=== PATIENT | female | born 1960 | race African-American/Black ===

== ENCOUNTER 2020-05-30 13:32 | Inpatient (IN) | payer OTHER ==
[2020-05-30] MEDS ORDERED: ACETAMINOPHEN 1000 MG/100 ML VIAL (NON FORMULARY) IVPB ONE (13:48)
[2020-05-30] MEDS ORDERED: ACETAMINOPHEN INJECTION 100 ML IVPB ONE (15:06)
[2020-05-30 15:33] LABS: BASO % 0.2 % (0-2.0); HEMATOCRIT 42.7 % (32.4-45.2); HEMOGLOBIN 13.9 GM/dL (10.7-15.3); MCH 26.2 pg (25.7-33.7); MCHC 32.5 g/dl (32.0-36.0); MEAN CELL VOLUME 80.7 fl (80-96); MEAN PLT VOLUME 10.4 fl (7.5-11.1); MONO % 6.6 % (3.8-10.2); NEUT % 85.2 % (42.8-82.8); PLATELET COUNT 224 K/MM3 (134-434); RBC 5.29 M/mm3 (3.60-5.2); RDW 14.6 % (11.6-15.6); WHITE BLOOD COUNT 9.4 K/mm3 (4.0-10.0)
[2020-05-30 15:43] LABS: INR 1.04 (0.83-1.09); PROTHROMBIN TIME (PATIENT) 12.8 SEC (9.7-13.0)
[2020-05-30 15:46] LABS: ACTIVATED PTT 28.4 SECONDS (25.2-36.5)
[2020-05-30 15:52] LABS: CHLORIDE 106 mmol/L (98-107); POTASSIUM 5.5 mmol/L (3.5-5.1); SODIUM 139 mmol/L (136-145)
[2020-05-30 15:55] LABS: CALCIUM 8.9 mg/dL (8.5-10.1)
[2020-05-30 15:56] LABS: ALBUMIN 3.1 g/dl (3.4-5.0); ANION GAP 4 MMOL/L (8-16); BLOOD UREA NITROGEN 45.2 mg/dL (7-18); CO2 30 mmol/L (21-32); GLUCOSE,RANDOM 323 mg/dL (74-106)
[2020-05-30 15:59] LABS: CREATININE 1.5 mg/dL (0.55-1.3); SGOT/AST 25 U/L (15-37); SGPT/ALT 57 U/L (13-61)
[2020-05-30 16:00] LABS: BILIRUBIN,DIRECT 0.1 mg/dL (0.0-0.2); BILIRUBIN,TOTAL 0.5 mg/dL (0.2-1)
[2020-05-30 16:01] LABS: TOT PROT 7.1 g/dl (6.4-8.2)
[2020-05-30] MEDS ORDERED: SODIUM CHLORIDE 1,000 ML IV STA (16:01)
[2020-05-30] MEDS ORDERED: CALCIUM GLUCONATE 10% - 1,000 MG/10 ML VIAL IVPUSH ONE (16:01)
[2020-05-30 16:02] LABS: ALK PHOS 95 U/L (45-117)
[2020-05-30] MEDS ORDERED: DEXAMETHASONE SOD PHOSPHATE 4 MG/1 ML VIAL IVPUSH ONE (16:02)
[2020-05-30 16:03] LABS: LDH 510 U/L (84-246)
[2020-05-30 16:26] LABS: ANISOCYTOSIS 1+; MACROCYTOSIS 0; PLATELET ESTIMATE NORMAL
[2020-05-30] MEDS ORDERED: CALCIUM GLUCONATE 10% - 1,000 MG/10 ML VIAL ONE (16:32)
[2020-05-30] MEDS ORDERED: DEXAMETHASONE SOD PHOSPHATE 4 MG/1 ML VIAL ONE (16:32)
[2020-05-30] MEDS ORDERED: ACETAMINOPHEN 325 MG TABLET (FP) PO PRN (17:44)
[2020-05-30] MEDS ORDERED: ALBUTEROL SO4 HFA INHALER IH PRN (17:44)
[2020-05-30] MEDS ORDERED: SODIUM CHLORIDE 1,000 ML IV SCH (17:45)
[2020-05-30] MEDS ORDERED: AZITHROMYCIN 250 MG TABLET PO SCH (18:00)
[2020-05-30] MEDS ORDERED: ENOXAPARIN NA (PORCINE) 40 MG/0.4 ML DISP.SYRIN SQ ONE (18:56)
[2020-05-30] MEDS ORDERED: AZITHROMYCIN 250 MG TABLET ONE (18:56)
[2020-05-30] MEDS ORDERED: CHOLECALCIFEROL (VIT D3) 1,000 UNIT (25 MCG) TABLET ONE (18:56)
[2020-05-30] MEDS: CHOLECALCIFEROL (VIT D3) 1,000 UNIT (25 MCG) TABLET PO SCH (19:16)
[2020-05-30] MEDS: ENOXAPARIN NA (PORCINE) 40 MG/0.4 ML DISP.SYRIN SQ SCH (19:16)
[2020-05-30] MEDS: hydrALAZINE HCL 10 MG TABLET PO SCH (22:52)
[2020-05-30] MEDS: INSULIN SLIDING SCALE (NOVOLOG) 1 VIAL SQ SCH (22:53)
[2020-05-30] MEDS: ASCORBIC ACID 500 MG TABLET (FP) PO SCH (22:53)
[2020-05-30] MEDS: ATORVASTATIN CA 20 MG TABLET (FP) PO SCH (22:53)
[2020-05-30] MEDS: INSULIN (LEVEMIR) 100 UNITS/ML UNITS SQ SCH (22:54)
[2020-05-30 23:40] VITALS: BMI 26.4
[2020-05-31] MEDS: INSULIN SLIDING SCALE (NOVOLOG) 1 VIAL SQ SCH ×4 (06:42→21:07)
[2020-05-31] MEDS ORDERED: INSULIN (NOVOLOG) ASPART 100 UNITS/ML 10ML VIAL ONE (07:07)
[2020-05-31 08:33] LABS: HEMATOCRIT 36.4 % (32.4-45.2); MCH 26.2 pg (25.7-33.7); MEAN CELL VOLUME 79.2 fl (80-96); MEAN PLT VOLUME 10.1 fl (7.5-11.1); PLATELET COUNT 198 K/MM3 (134-434); RDW 14.3 % (11.6-15.6); WHITE BLOOD COUNT 7.9 K/mm3 (4.0-10.0)
[2020-05-31 09:02] LABS: POTASSIUM 5.3 mmol/L (3.5-5.1)
[2020-05-31 09:11] LABS: BLOOD UREA NITROGEN 37.5 mg/dL (7-18); CALCIUM 8.5 mg/dL (8.5-10.1); MAGNESIUM 2.1 mg/dL (1.8-2.4)
[2020-05-31 09:14] LABS: PHOSPHOROUS 3.5 mg/dL (2.5-4.9)
[2020-05-31 09:15] LABS: CREATININE 1.3 mg/dL (0.55-1.3)
[2020-05-31] MEDS ORDERED: ZINC SULFATE 220 MG TABLET PO SCH (10:00)
[2020-05-31] MEDS: hydrALAZINE HCL 10 MG TABLET PO SCH ×2 (12:13→21:06)
[2020-05-31] MEDS: PANTOPRAZOLE 40 MG TABLET PO SCH (12:13)
[2020-05-31] MEDS: ASPIRIN 81 MG CHEWABLE TABLETS PO SCH (12:13)
[2020-05-31] MEDS: ASCORBIC ACID 500 MG TABLET (FP) PO SCH ×2 (12:13→21:06)
[2020-05-31] MEDS: amLODIPine BESYLATE 10 MG TABLET (FP) PO SCH (12:13)
[2020-05-31] MEDS: CHOLECALCIFEROL (VIT D3) 1,000 UNIT (25 MCG) TABLET PO SCH (12:13)
[2020-05-31] MEDS: CLOPIDOGREL BISULFATE 75 MG TABLET (FP) PO SCH (12:14)
[2020-05-31] MEDS: ENOXAPARIN NA (PORCINE) 40 MG/0.4 ML DISP.SYRIN SQ SCH (12:14)
[2020-05-31] MEDS: BUDESONIDE/FORMETEROL FUMARATE 80/4.5 mcg INHALER IH SCH ×3 (12:14→21:10)
[2020-05-31] MEDS: DEXAMETHASONE SOD PHOSPHATE 10 MG/1 ML VIAL IVPUSH SCH (13:18)
[2020-05-31] MEDS ORDERED: REMDESIVIR 200 MG in SODIUM CHLORIDE 210 ML IVPB ONE (17:00)
[2020-05-31] MEDS: INSULIN (LEVEMIR) 100 UNITS/ML UNITS SQ SCH (21:07)
[2020-05-31] MEDS: ATORVASTATIN CA 20 MG TABLET (FP) PO SCH (21:07)
[2020-06-01 02:15] LABS: PH,URINE 5.5 (5.0-8.0); URINE APPEARANCE CLEAR; URINE BILIRUBIN NEGATIVE (NEGATIVE); URINE COLOR YELLOW; URINE GLUCOSE (UA) 3+ (NEGATIVE); URINE KETONE NEGATIVE (NEGATIVE); URINE LEUK ESTERASE NEGATIVE (NEGATIVE); URINE NITRITE NEGATIVE (NEGATIVE); URINE PROTEIN NEGATIVE (NEGATIVE); URINE UROBILINOGEN 0.2 mg/dL (0.2-1.0)
[2020-06-01] MEDS ORDERED: SODIUM CHLORIDE 1,000 ML IV SCH (04:45)
[2020-06-01] MEDS: hydrALAZINE HCL 10 MG TABLET PO SCH ×3 (05:51→22:15)
[2020-06-01] MEDS: INSULIN SLIDING SCALE (NOVOLOG) 1 VIAL SQ SCH ×4 (07:23→22:18)
[2020-06-01 08:43] LABS: BASO % 0.1 % (0-2.0); HEMATOCRIT 34.4 % (32.4-45.2); HEMOGLOBIN 11.2 GM/dL (10.7-15.3); LYMPH % 7.8 % (8-40); MCH 26.2 pg (25.7-33.7); MCHC 32.5 g/dl (32.0-36.0); MEAN CELL VOLUME 80.6 fl (80-96); MEAN PLT VOLUME 10.1 fl (7.5-11.1); MONO % 4.4 % (3.8-10.2); NEUT % 87.7 % (42.8-82.8); PLATELET COUNT 147 K/MM3 (134-434); RBC 4.26 M/mm3 (3.60-5.2); RDW 14.1 % (11.6-15.6); WHITE BLOOD COUNT 7.7 K/mm3 (4.0-10.0)
[2020-06-01 08:56] LABS: CHLORIDE 107 mmol/L (98-107); POTASSIUM 4.7 mmol/L (3.5-5.1); SODIUM 140 mmol/L (136-145)
[2020-06-01 09:01] LABS: CALCIUM 8.4 mg/dL (8.5-10.1)
[2020-06-01 09:02] LABS: ALBUMIN 2.6 g/dl (3.4-5.0); ANION GAP 7 MMOL/L (8-16); BLOOD UREA NITROGEN 28.5 mg/dL (7-18); CO2 26 mmol/L (21-32); GLUCOSE,RANDOM 203 mg/dL (74-106); MAGNESIUM 1.9 mg/dL (1.8-2.4)
[2020-06-01 09:05] LABS: CREATININE 1.1 mg/dL (0.55-1.3); SGOT/AST 14 U/L (15-37); SGPT/ALT 49 U/L (13-61)
[2020-06-01 09:06] LABS: BILIRUBIN,TOTAL 0.6 mg/dL (0.2-1); LDH 313 U/L (84-246); TOT PROT 5.7 g/dl (6.4-8.2)
[2020-06-01 09:08] LABS: ALK PHOS 79 U/L (45-117)
[2020-06-01 10:32] LABS: ANISOCYTOSIS 0; MACROCYTOSIS 0; PLATELET ESTIMATE DECREASED
[2020-06-01] MEDS: DEXAMETHASONE SOD PHOSPHATE 10 MG/1 ML VIAL IVPUSH SCH (10:49)
[2020-06-01] MEDS: ASPIRIN 81 MG CHEWABLE TABLETS PO SCH (10:49)
[2020-06-01] MEDS: CLOPIDOGREL BISULFATE 75 MG TABLET (FP) PO SCH (10:50)
[2020-06-01] MEDS: ZINC SULFATE 220 MG CAPSULE (FP) PO SCH (10:50)
[2020-06-01] MEDS: amLODIPine BESYLATE 10 MG TABLET (FP) PO SCH (10:50)
[2020-06-01] MEDS: ENOXAPARIN NA (PORCINE) 40 MG/0.4 ML DISP.SYRIN SQ SCH (10:50)
[2020-06-01] MEDS: CHOLECALCIFEROL (VIT D3) 1,000 UNIT (25 MCG) TABLET PO SCH (10:50)
[2020-06-01] MEDS: ASCORBIC ACID 500 MG TABLET (FP) PO SCH ×2 (10:50→22:15)
[2020-06-01] MEDS: BUDESONIDE/FORMETEROL FUMARATE 80/4.5 mcg INHALER IH SCH ×2 (10:50→22:19)
[2020-06-01] MEDS: PANTOPRAZOLE 40 MG TABLET PO SCH (10:50)
[2020-06-01] MEDS: INSULIN (LEVEMIR) 100 UNITS/ML UNITS SQ SCH ×2 (11:12→22:15)
[2020-06-01] MEDS ORDERED: REMDESIVIR 100 MG in SODIUM CHLORIDE 230 ML IVPB SCH (17:00)
[2020-06-01] MEDS: ATORVASTATIN CA 20 MG TABLET (FP) PO SCH (22:15)
[2020-06-02] MEDS: hydrALAZINE HCL 10 MG TABLET PO SCH ×3 (06:30→21:28)
[2020-06-02] MEDS: INSULIN SLIDING SCALE (NOVOLOG) 1 VIAL SQ SCH ×4 (06:30→21:29)
[2020-06-02 11:02] LABS: BASO % 0.1 % (0-2.0); HEMATOCRIT 36.3 % (32.4-45.2); HEMOGLOBIN 11.7 GM/dL (10.7-15.3); LYMPH % 5.6 % (8-40); MCH 26.1 pg (25.7-33.7); MCHC 32.3 g/dl (32.0-36.0); MEAN CELL VOLUME 80.7 fl (80-96); MEAN PLT VOLUME 10.8 fl (7.5-11.1); MONO % 4.9 % (3.8-10.2); NEUT % 89.4 % (42.8-82.8); PLATELET COUNT 148 K/MM3 (134-434); RBC 4.49 M/mm3 (3.60-5.2); RDW 13.9 % (11.6-15.6)
[2020-06-02 11:16] LABS: CHLORIDE 107 mmol/L (98-107); POTASSIUM 4.6 mmol/L (3.5-5.1); SODIUM 138 mmol/L (136-145)
[2020-06-02 11:23] LABS: ALBUMIN 2.5 g/dl (3.4-5.0); BILIRUBIN,TOTAL 0.8 mg/dL (0.2-1); BLOOD UREA NITROGEN 35.2 mg/dL (7-18); CALCIUM 8.1 mg/dL (8.5-10.1); SGPT/ALT 67 U/L (13-61)
[2020-06-02 11:25] LABS: ALK PHOS 92 U/L (45-117); ANION GAP 7 MMOL/L (8-16); CO2 24 mmol/L (21-32); GLUCOSE,RANDOM 357 mg/dL (74-106); LDH 314 U/L (84-246); TOT PROT 5.5 g/dl (6.4-8.2)
[2020-06-02] MEDS ORDERED: INSULIN (NOVOLOG) ASPART 100 UNITS/ML 10ML VIAL ONE (11:26)
[2020-06-02 11:27] LABS: CREATININE 1.2 mg/dL (0.55-1.3); PHOSPHOROUS 3.3 mg/dL (2.5-4.9); SGOT/AST 22 U/L (15-37)
[2020-06-02] MEDS: ASPIRIN 81 MG CHEWABLE TABLETS PO SCH (11:30)
[2020-06-02] MEDS: PANTOPRAZOLE 40 MG TABLET PO SCH (11:30)
[2020-06-02] MEDS: ENOXAPARIN NA (PORCINE) 40 MG/0.4 ML DISP.SYRIN SQ SCH (11:30)
[2020-06-02] MEDS: ASCORBIC ACID 500 MG TABLET (FP) PO SCH ×2 (11:31→21:28)
[2020-06-02] MEDS: ZINC SULFATE 220 MG CAPSULE (FP) PO SCH (11:31)
[2020-06-02] MEDS: DEXAMETHASONE SOD PHOSPHATE 10 MG/1 ML VIAL IVPUSH SCH (11:31)
[2020-06-02] MEDS: CHOLECALCIFEROL (VIT D3) 1,000 UNIT (25 MCG) TABLET PO SCH (11:31)
[2020-06-02] MEDS: CLOPIDOGREL BISULFATE 75 MG TABLET (FP) PO SCH (11:31)
[2020-06-02] MEDS: amLODIPine BESYLATE 10 MG TABLET (FP) PO SCH (11:32)
[2020-06-02] MEDS: INSULIN (LEVEMIR) 100 UNITS/ML UNITS SQ SCH ×2 (11:32→21:29)
[2020-06-02] MEDS: BUDESONIDE/FORMETEROL FUMARATE 80/4.5 mcg INHALER IH SCH ×2 (11:40→21:33)
[2020-06-02 12:03] LABS: ANISOCYTOSIS 0; MACROCYTOSIS 0; PLATELET ESTIMATE DECREASED
[2020-06-02] MEDS: ATORVASTATIN CA 20 MG TABLET (FP) PO SCH (21:28)
[2020-06-03] MEDS: INSULIN SLIDING SCALE (NOVOLOG) 1 VIAL SQ SCH ×3 (06:14→17:09)
[2020-06-03] MEDS: hydrALAZINE HCL 10 MG TABLET PO SCH ×2 (06:39→14:18)
[2020-06-03 07:51] LABS: BASO % 0.3 % (0-2.0); HEMATOCRIT 38.3 % (32.4-45.2); HEMOGLOBIN 12.4 GM/dL (10.7-15.3); MCH 26.1 pg (25.7-33.7); MCHC 32.3 g/dl (32.0-36.0); MEAN CELL VOLUME 80.8 fl (80-96); MEAN PLT VOLUME 10.2 fl (7.5-11.1); MONO % 4.5 % (3.8-10.2); NEUT % 90.2 % (42.8-82.8); PLATELET COUNT 119 K/MM3 (134-434); RBC 4.74 M/mm3 (3.60-5.2); RDW 14.4 % (11.6-15.6); WHITE BLOOD COUNT 10.5 K/mm3 (4.0-10.0)
[2020-06-03 08:06] LABS: POTASSIUM 4.7 mmol/L (3.5-5.1)
[2020-06-03 08:10] LABS: ALBUMIN 2.6 g/dl (3.4-5.0); BLOOD UREA NITROGEN 36.8 mg/dL (7-18); CALCIUM 8.2 mg/dL (8.5-10.1); MAGNESIUM 2.2 mg/dL (1.8-2.4)
[2020-06-03 08:12] LABS: CREATININE 1.3 mg/dL (0.55-1.3)
[2020-06-03 08:13] LABS: PHOSPHOROUS 2.9 mg/dL (2.5-4.9)
[2020-06-03 08:14] LABS: BILIRUBIN,TOTAL 0.5 mg/dL (0.2-1); TOT PROT 5.7 g/dl (6.4-8.2)
[2020-06-03] MEDS: ASCORBIC ACID 500 MG TABLET (FP) PO SCH (10:41)
[2020-06-03] MEDS: INSULIN (LEVEMIR) 100 UNITS/ML UNITS SQ SCH (10:41)
[2020-06-03] MEDS: ENOXAPARIN NA (PORCINE) 40 MG/0.4 ML DISP.SYRIN SQ SCH (10:41)
[2020-06-03] MEDS: DEXAMETHASONE SOD PHOSPHATE 10 MG/1 ML VIAL IVPUSH SCH (10:41)
[2020-06-03] MEDS: ZINC SULFATE 220 MG CAPSULE (FP) PO SCH (10:42)
[2020-06-03] MEDS: CLOPIDOGREL BISULFATE 75 MG TABLET (FP) PO SCH (10:42)
[2020-06-03] MEDS: CHOLECALCIFEROL (VIT D3) 1,000 UNIT (25 MCG) TABLET PO SCH (10:42)
[2020-06-03] MEDS: amLODIPine BESYLATE 10 MG TABLET (FP) PO SCH (10:42)
[2020-06-03] MEDS: ASPIRIN 81 MG CHEWABLE TABLETS PO SCH (10:42)
[2020-06-03] MEDS: PANTOPRAZOLE 40 MG TABLET PO SCH (10:43)
[2020-06-03] MEDS: BUDESONIDE/FORMETEROL FUMARATE 80/4.5 mcg INHALER IH SCH (10:52)
[2020-06-03 11:15] VITALS: TEMP 98.3
[2020-06-03 11:16] LABS: ANISOCYTOSIS 1+; PLATELET ESTIMATE ADEQUATE
[2020-06-03 14:43] VITALS: BP 108/55; PULSE 77
== END 2020-06-03 18:05 | disposition home or self-care (01) | DRG 137 ==
LOC: JER 13:32 → JERBED 16:11 → J6S 21:09
PROVIDERS: ADMIT Internal Medicine; ATTEND Student in an Organized Health Care Education/Training Program
PROC: XW13325 Transfusion of Convalescent Plasma (Nonautologous) into Peripheral Vein, Percutaneous Approach, New Technology Group 5 (ICD-10-PCS; principal; 2020-05-31)
PROC: XW033E5 Introduction of Remdesivir Anti-infective into Peripheral Vein, Percutaneous Approach, New Technology Group 5 (ICD-10-PCS; 2020-05-31)
DX: U07.1 COVID-19 (principal); J12.82 Pneumonia due to coronavirus disease 2019; J96.01 Acute respiratory failure with hypoxia; N17.9 Acute kidney failure, unspecified; J44.9 Chronic obstructive pulmonary disease, unspecified; E11.9 Type 2 diabetes mellitus without complications; E78.5 Hyperlipidemia, unspecified; I10 Essential (primary) hypertension; I69.351 Hemiplegia and hemiparesis following cerebral infarction affecting right dominant side
CPT/HCPCS: 36415; 36430; 71045-TC-FY; 74177-TC; 80048; 80053; 81003; 82248; 82550; 82728; 82947; 82962; 83036; 83605; 83615; 83690; 83735; 84100; 84484; 85025; 85027; 85379; 85610; 85730; 86140; 86850; 86900; 86901; 87040; 87086; 87186; 87804; 93005; 93010; 99285-25; C9399; C9803; J0131; J1100; P9017; U0003